=== PATIENT | female | born 1950 | race Caucasian/White ===

== ENCOUNTER 2018-09-18 00:55 | Emergency (ER) | payer MEDICARE, OTHER ==
[~2018-09-18] VITALS: Ht 163.8 cm; Wt 62.6 kg
--- OUTSIDE RECORDS SUMMARY | 2018-09-18 01:00 | XMS REPORT | Continuity of Care Document ---
Author Organization Unknown Address Unknown Allergies There is no data. Medications There is no data. Problems There is no data. Procedures There is no data. Results There is no data. Encounters ACCT No. Visit Date/Time Discharge Status Pt. Type Provider Facility Loc./Unit Complaint [id number] 09/11/2018 13:00:00 09/11/2018 23:59:59 CLS Outpatient SELF, NAYAN PATEL [facility]
--- NOTE | 2018-09-18 01:24 | ED General ---
General Chief Complaint: Oral/Throat Problems Stated Complaint: GLAND ON LT SIDE OF NECK SWOLLEN Nursing Triage Note: LEFT SIDED NECK PAIN, PT REPORTED SHE CANT HEAR OR SWOLLOW. DOCTOR IN TO SEE THE PATIENT. IT WAS REPORTED THIS STARTED AROUND 1500 YESTERDAY. Nursing Sepsis Screen: No Definite Risk Source of Information: Patient Exam Limitations: No Limitations History of Present Illness Date Seen by Provider: Sep 18, 2018 Time Seen by Provider: 01:05 Initial Comments This 68-year-old woman presents to the emergency room with perceived swelling of the left side of the neck and painful difficult swallowing. She also states her ear hurts and feels congested. She tried icy hot, Benadryl, and a fentanyl patch without significant improvement. Symptoms started around 15:00. She has spent much time the last 2 days outdoors. She denies any rash, hives, or itching. She is afebrile. Patient reports she has trouble swallowing solids including the Benadryl pills. Allergies and Home Medications Allergies Coded Allergies: codeine (Verified Allergy, Unknown, 09/18/18) morphine (Verified Allergy, Unknown, 09/18/18) soy (Verified Allergy, Unknown, 09/18/18) strawberry (Verified Allergy, Unknown, 09/18/18) Uncoded Allergies: Chocolate (Allergy, Unknown, 09/18/18) Home Medications Amoxicillin 500 Mg Capsule, 1,000 MG PO BID Prescribed by: JASON BEAUCHAMP on 09/18/18 0135 Patient Home Medication List Home Medication List Reviewed: Yes Review of Systems Review of Systems Constitutional: no symptoms reported EENTM: see HPI Respiratory: no symptoms reported Cardiovascular: no symptoms reported Gastrointestinal: no symptoms reported Genitourinary: no symptoms reported : No Musculoskeletal: no symptoms reported Skin: no symptoms reported Psychiatric/Neurological: No Symptoms Reported Hematologic/Lymphatic: No Symptoms Reported Immunological/Allergic: no symptoms reported Past Bciyzym-Qfgqhc-Yphhca Hx Past Med/Social Hx: Reviewed and Corrections made Patient Social History Recent Foreign Travel: No Contact w/Someone Who Travel: No Recent Infectious Disease Expo: No Physical Abuse: No Sexual Abuse: No Fear: No Past Medical History Surgeries: Yes Orthopedic (Cervical spine), Thyroidectomy Respiratory: No Cardiac: No Neurological: Yes (Restless leg syndrome) : No Reproductive Disorders: No Genitourinary: No Gastrointestinal: No Musculoskeletal: Yes (Chronic neck pain) Endocrine: Yes Hypothyroidsim HEENT: No Cancer: No Psychosocial: No Physical Exam Vital Signs Vital Signs - First Documented 09/18/18 01:07 Temp 97.7 Pulse 82 Resp 16 B/P (MAP) 133/67 (89) Pulse Ox 100 O2 Delivery Room Air Capillary Refill : Less Than 3 Seconds Height, Weight, BMI Height: 5'4.50" Weight: 138lbs. oz. 62.521447ym; BMI Method:Stated General Appearance: No Apparent Distress, WD/WN HEENT: PERRL/EOMI, TMs Normal, Normal ENT Inspection, Pharynx Normal Neck: Other (And tenderness in the left anterior cervical region with no jaclyn lymphadenopathy or masses. No thyromegaly appreciated. Skin is sunburned on the neck. No significant swelling superficially appreciated.) Respiratory: Lungs Clear, Normal Breath Sounds, No Accessory Muscle Use, No Respiratory Distress Cardiovascular: Regular Rate, Rhythm, No Edema, No Murmur Extremity: Normal Inspection, No Pedal Edema Neurologic/Psychiatric: Alert, Oriented x3, No Motor/Sensory Deficits, Normal Mood/Affect, vessel slagman II-XII Norm as Tested Skin: Normal Color, Warm/Dry, Other (Mild sunburn in exposed areas) Progress/Results/Core Measures Suspected Sepsis Recent Fever Within 48 Hours: No Infection Criteria Present: None New/Unexplained Altered Menta: No Sepsis Screen: No Definite Risk SIRS Temperature:97.7 Pulse: 82 Respiratory Rate: 16 Blood Pressure 133 /67 Mean: 89 Results/Orders My Orders Orders - JASON CHENEY MD Ceftriaxone For Im Use (Rocephin For Im (09/18/18 01:30) Lidocaine 1% Inj 20 Ml (Xylocaine 1% Inj (09/18/18 01:30) Ketorolac Injection (Toradol Injection) (09/18/18 01:30) Medications Given in ED Current Medications Medications Dose Ordered Sig/Ana Route Start Time Stop Time Status Last Admin Dose Admin Ceftriaxone Sodium 1,000 mg ONCE ONCE IM 09/18/18 01:30 09/18/18 01:32 DC 09/18/18 01:25 1,000 MG Ketorolac Tromethamine 30 mg ONCE ONCE IM 09/18/18 01:30 09/18/18 01:32 DC 09/18/18 01:31 30 MG Lidocaine HCl 2.1 ml ONCE ONCE INJ 09/18/18 01:30 09/18/18 01:32 DC 09/18/18 01:26 2.1 ML Vital Signs/I&O 09/18/18 09/18/18 01:07 01:36 Temp 97.7 97.7 Pulse 82 82 Resp 16 16 B/P (MAP) 133/67 (89) 133/67 (89) Pulse Ox 100 100 O2 Delivery Room Air Capillary Refill : Less Than 3 Seconds Blood Pressure Mean: 89 Progress Note : Progress Note No significant abnormality was noted on examination. Patient was treated empirically for pharyngitis. She received Rocephin injection. Toradol injection was administered for pain. Return precautions reviewed. Departure Impression Primary Impression: Odynophagia Additional Impression: Otalgia, left ear Disposition: HOME, SELF-CARE Condition: Stable Departure-Patient Inst. Decision time for Depature: 01:23 Referrals: NAYAN CASTREJON MD (PCP/Family) Primary Care Physician Patient Instructions: Sore Throat in Adults Add. Discharge Instructions: You may take ibuprofen up to 600 mg every 6 hours as needed and/or Tylenol ( acetaminophen) up to 1000 mg every 6 hours as needed for pain. Complete your antibiotic as prescribed. You may come to the capsule and mix the powder with pudding, applesauce, etc. Contact your primary care provider tomorrow if not improving. Return to the ER or call 911 if symptoms are worsening, especially if you have difficulty breathing. All discharge instructions reviewed with patient and/or family. Voiced understanding. Scripts Amoxicillin (Amoxicillin) 500 Mg Capsule 1000 MG PO BID, #28 CAP Prov: JASON CHENEY MD 09/18/18 Copy Copies To 1: NAYAN CASTREJON MD, JOSHUA T MD Sep 18, 2018 01:24
[2018-09-18] MEDS ORDERED: KETOROLAC 30 MG/ML VIAL IM ONE (01:30)
[2018-09-18] MEDS ORDERED: LIDOCAINE 1% INJ 20 ML 20 ML VIAL INJ ONE (01:30)
[2018-09-18] MEDS ORDERED: cefTRIAXone 1,000 MG/2.86 ml vial (IM ONLY) IM ONE (01:30)
[2018-09-18] MEDS ORDERED: AMOX500C2 PO (01:35)
[2018-09-18 01:36] VITALS: BP 133/67
== END 2018-09-18 01:38 | disposition home or self-care (01) ==
LOC: ER FS 00:58
DX: R13.10 Dysphagia, unspecified (principal); H92.02 Otalgia, left ear; E03.9 Hypothyroidism, unspecified; G25.81 Restless legs syndrome; Z88.5 Allergy status to narcotic agent; Z90.89 Acquired absence of other organs
CPT/HCPCS: 99284